=== PATIENT | female | born 1945 | race Caucasian/White ===

== ENCOUNTER 2019-02-06 12:44 | Inpatient (IN) | payer MEDICARE ==
[~2019-02-06] VITALS: Ht 154.9 cm; Wt 100.1 kg
[~2019-02-06 12:44] MED LIST: ALBU90OI61 INH; FURO40 PO; HYDACE5 PO; LISI20 PO; METO50ER PO; OMEPRAZOLE MAGN20 MG PO; POTA10T PO; PRED20 PO; RXHYDACE PO; [UNRECOGNIZED DRUG - REMARK]; [UNRECOGNIZED DRUG - REMARK]
[2019-02-06 13:46] LABS: BASOPHILS ABSOLUTE AUTO 0.06 K/mm3 (0.00-0.23); BASOPHILS PERCENT AUTO 0 % (0-2); EOSINOPHILS ABSOLUTE AUTO 0.04 K/mm3 (0.00-0.68); EOSINOPHILS PERCENT AUTO 0 % (0-6); Hematocrit 40.7 % (33.0-51.0); Hemoglobin 13.6 g/dL (11.5-16.0); IMMATURE GRAN PERCENT AUTO 1 % (0-1); LYMPHOCYTES ABSOLUTE AUTO 0.93 K/mm3 (0.84-5.20); LYMPHOCYTES PERCENT AUTO 6 % (21-46); MONOCYTES ABSOLUTE AUTO 0.54 K/mm3 (0.16-1.47); MONOCYTES PERCENT AUTO 4 % (4-13); Mean Corpuscular HGB 33.7 pg (26.0-34.0); Mean Corpuscular HGB Conc 33.4 g/dL (31.5-36.5); Mean Corpuscular Volume 101 fL (80-100); Mean Platelet Volume 9.9 fL (9.1-12.4); NEUTROPHILS ABSOLUTE AUTO 13.66 K/mm3 (1.96-9.15); NEUTROPHILS PERCENT AUTO 89 % (41-73); Platelet Count 247 K/mm3 (150-400); RDW Coefficient Variation 15.7 % (11.7-14.2); RDW Standard Deviation 58.1 fL (35.1-46.3); Red Blood Cell Count 4.03 M/mm3 (3.80-5.20); White Blood Cell Count 15.33 K/mm3 (4.00-11.30)
[2019-02-06 13:52] LABS: Alanine Aminotransfer (ALT/SGP 25 U/L (12-78); Albumin, Blood 3.9 g/dL (3.4-5.0); Albumin/Globulin Ratio 1.1 (0.8-1.8); Alk Phos 64 U/L (50-136); Anion Gap 9 mmol/L (6-16); Aspartate Aminotrans (AST/SGOT 15 U/L (12-37); Bilirubin, Total 1.8 mg/dL (0.1-1.0); Blood Urea Nitrogen 21 mg/dL (8-24); Bun/Creatinine Ratio 22.9 (12.0-20.0); CO2, Blood 26 mmol/L (21-32); Calcium, Blood 9.4 mg/dL (8.5-10.1); Chloride, Blood 107 mmol/L (98-108); Creatinine, Blood 0.92 mg/dL (0.40-1.00); Globulin, Blood 3.6 g/dL (2.2-4.0); Glomerular Filtration Rate >60 (60-); Glucose, Blood 139 mg/dL (70-99); Potassium, Blood 3.6 mmol/L (3.5-5.5); Sodium, Blood 142 mmol/L (136-145); Total Protein, Blood 7.5 g/dL (6.4-8.2); Troponin I 0.032 ng/mL (0.000-0.040)
[2019-02-06 13:52] LABS: Source, Urine Clean Catch
[2019-02-06 13:59] LABS: Appearance, Urine Clear (Clear); Bilirubin, Urine Neg (Neg); Blood, Urine 1+ (Neg); Color, Urine Amber (P-Yellow); Glucose Qualitative, Urine Neg (Neg); Ketones, Urine 1+ (Neg); Leukocyte Esterase, Urine 3+ (Neg); Nitrite, Urine Neg (Neg); Protein, Urine 2+ (Neg); Urobilinogen, Urine 2+ (Normal)
[2019-02-06 14:57] LABS: Squamous Epithelial Cells Many /hpf (Few)
[2019-02-06 14:58] LABS: Bacteria Few /hpf; Red Blood Cells, Urine 0-2 /hpf (0-2)
[2019-02-06] MEDS ORDERED: LISI20 PO (15:43)
[2019-02-06] MEDS ORDERED: POTCHL20ER PO (15:45)
--- NOTE | 2019-02-06 18:42 | NUR ---
PT ARRIVED TO ROOM VIA [facility], C/O NAUSEA AND 7/10 PAIN, MEDICATED W/ ZOFRAN AND DILAUDID ORDERED, FAMILY AT BEDSIDE, ORIENTED TO ROOM LAYOUT AND CALL SYSTEM, REPORT TO NOC RN.
[2019-02-07 05:10] LABS: BASOPHILS ABSOLUTE AUTO 0.06 K/mm3 (0.00-0.23); BASOPHILS PERCENT AUTO 0 % (0-2); EOSINOPHILS ABSOLUTE AUTO 0.08 K/mm3 (0.00-0.68); EOSINOPHILS PERCENT AUTO 1 % (0-6); Hematocrit 35.1 % (33.0-51.0); Hemoglobin 11.6 g/dL (11.5-16.0); IMMATURE GRAN ABSOLUTE AUTO 0.11 K/mm3 (0.00-0.10); IMMATURE GRAN PERCENT AUTO 1 % (0-1); LYMPHOCYTES ABSOLUTE AUTO 0.95 K/mm3 (0.84-5.20); LYMPHOCYTES PERCENT AUTO 6 % (21-46); MONOCYTES PERCENT AUTO 14 % (4-13); Mean Corpuscular HGB 33.3 pg (26.0-34.0); Mean Corpuscular Volume 101 fL (80-100); Mean Platelet Volume 9.9 fL (9.1-12.4); NEUTROPHILS ABSOLUTE AUTO 13.11 K/mm3 (1.96-9.15); NEUTROPHILS PERCENT AUTO 79 % (41-73); Platelet Count 210 K/mm3 (150-400); RDW Coefficient Variation 16.3 % (11.7-14.2); RDW Standard Deviation 60.5 fL (35.1-46.3); Red Blood Cell Count 3.48 M/mm3 (3.80-5.20); White Blood Cell Count 16.61 K/mm3 (4.00-11.30)
[2019-02-07 05:31] LABS: Anion Gap 7 mmol/L (6-16); Blood Urea Nitrogen 13 mg/dL (8-24); Bun/Creatinine Ratio 14.4 (12.0-20.0); CO2, Blood 27 mmol/L (21-32); Calcium, Blood 8.2 mg/dL (8.5-10.1); Chloride, Blood 109 mmol/L (98-108); Glomerular Filtration Rate >60 (60-); Glucose, Blood 125 mg/dL (70-99); Potassium, Blood 3.4 mmol/L (3.5-5.5); Sodium, Blood 143 mmol/L (136-145)
--- NOTE | 2019-02-07 06:21 | NUR ---
SHIFT SUMMARY PT TRANSFERRED FROM ED 02/06/19, PRESENTING WITH ABDOMINAL PAIN. TREATED FOR CHOLECYSTITIS. VSS, 02 SATS >95% ON RA. PT DENIED N/V THIS SHIFT, REP ADEQUATE PAIN MANAGEMENT WITH REST AND MEDICATION. PT REP NOT PASSING FLATUS, LAST BM 02/05/19. PT VOIDING INDEPENDENTLY. MADE NPO AT MIDNIGHT. WILL CONTINUE TO MONITOR
--- NOTE | 2019-02-07 12:21 | NUR ---
PT TO DAY SURGERY AT THIS TIME. K RIDER STILL INFUSING.
--- NOTE | 2019-02-07 12:48 | NUR ---
History, Chart, Medications and Allergies reviewed before start of procedure. Lungs clear T/O to Auscultation. Patient confirms NPO status and agrees with scheduled surgery.
--- NOTE | 2019-02-07 14:06 | NUR ---
02/07/19 1406 [facility] ANTIBIOTICS AREA SCHEDULED AND PT RECIEVED PRIOR TO ARRIVAL TO OR.
--- NOTE | 2019-02-07 16:36 | NUR ---
POST OP S/P LAP KERRY. X5 LAP SITES TO ABD ARE CLEAN AND INTACT WITH X1 SITE WITH SMALL OOZING. PT REPORTS PAIN TOLERABLE AT THIS TIME. DENIES N/V. OFFERED ICE CHIPS AND JELLO. IVF INFUSING PER ORDERS. POST OP VSS AND IN PROGRESS. ALERT AND ORIENTED. FAMILY AT SIDE FOR SUPPORT. WILL CONT TO MONITOR. CALL LIGHT WITHIN REACH.
--- NOTE | 2019-02-08 03:47 | NUR ---
SHIFT SUMMARY PT POD#1 LAP KERRY. AAOX4. DISCOMFORT CONTROLLED WITH X1 NORCO THIS SHIFT, NO NAUSEA/EMESIS. ABD INCISIONS X5 WITH STERI STRIPS C/D/I. PT SBA UP TO RESTROOM. ENCOURAGE AMBULATION TODAY. IVF + ABX PER ORDERS. DAUGHTER AT BEDSIDE T/O NIGHT. NO ACUTE CHANGES. CALL LIGHT IN REACH + PT USES FOR ASSISTANCE.
[2019-02-08 08:37] LABS: Hematocrit 32.3 % (33.0-51.0); Hemoglobin 10.5 g/dL (11.5-16.0)
--- NOTE | 2019-02-08 13:30 | NUR ---
ASSUMED CARE OF PATIENT AT 1235. PATIENT DENIES NAUSEA/PAIN AT THIS TIME. AWAITING TO BE SEEN BY MD. FAMILY AT BEDSIDE.
--- NOTE | 2019-02-08 17:50 | NUR ---
PATIENT D/C'D TO HOME WITH FAMILY AT THIS TIME. TOLERATING PO. DENIES PAIN OR OTHER C/O. PATIENT STATES UNDERSTANDING OF MEDS, F/U APPT, WOUND CARE, ETC.
== END 2019-02-08 17:39 | disposition home or self-care (01) | DRG 419 ==
LOC: ER 12:44 → SURS 16:06 → ERHOLD 16:06 → SURS 18:00
PROVIDERS: Emergency Medicine; Surgery; ADMIT Internal Medicine
PROC: 0FT44ZZ Resection of Gallbladder, Percutaneous Endoscopic Approach (ICD-10-PCS; principal; 2019-02-07 11:30)
DX: K80.00 Calculus of gallbladder with acute cholecystitis without obstruction (principal); I10 Essential (primary) hypertension; E87.6 Hypokalemia; Z87.891 Personal history of nicotine dependence
CPT/HCPCS: 36415; 74300; 76705; 80048; 80053; 81001; 83690; 84132; 84484; 85014; 85018; 85025; 87086; 88304; 93005; 93010; 96361; 96365; 96366; 96375; 96376; 99285-25; A9270-GY; C1729; J0295; J1170; J2370; J2405; J2704; J3010; J3480; J7030; J7120